=== PATIENT | male | born 1960 | race Caucasian/White ===

== ENCOUNTER → 2020-05-23 08:57 | Outpatient (CLI) | payer OTHER, SELFPAY ==
--- NOTE | ~2020-05-23 | MR_ITS ---
EXAMINATION: MR cervical spine wo con DATE: 05/23/2020 10:01 INDICATION: Neck pain. TECHNIQUE: Magnetic resonance imaging (MRI) of the cervical spine was performed without intravenous c ontrast. Sequences included sagittal T2-weighted FSE, sagittal STIR FSE, sagittal T1-weighted FSE, ax ial MERGE, and axial T2-weighted FSE. COMPARISON: None FINDINGS: There is mild kyphosis of upper cervical spine. Vertebral body heights are normal. There is mildly decreased disc height at C2-C3, severely decreased disc height at C3-C4, moderately decreased disc height at C4-C5, and severely decreased disc height at C5-C6 and C6-C7. The spinal cord signal intensity is normal. The following disc levels are specifically discussed: C2-C3: There is a left central protrusion. There is mild right and moderate left uncovertebral joint osteoarthritis. There is mild right and moderate left facet joint osteoarthritis. There is mild left neural foraminal stenosis. There is mild central canal stenosis. C3-C4: The disc is bulging. There is moderate right and severe left uncovertebral joint osteoarthriti s. There is moderate bilateral facet joint osteoarthritis. There is mild right and moderate left neur al foraminal stenosis. There is mild central canal stenosis with ventral indentation of spinal cord. C4-C5: The disc is bulging. There is moderate bilateral uncovertebral joint osteoarthritis. There is moderate bilateral facet joint osteoarthritis. There is mild bilateral neural foraminal stenosis. The re is mild central canal stenosis. C5-C6: The disc is bulging. There is severe bilateral uncovertebral joint osteoarthritis. There is mi ld right and moderate left facet joint osteoarthritis. There is mild bilateral neural foraminal steno sis. There is mild central canal stenosis. C6-C7: The disc is bulging. There is severe bilateral uncovertebral joint osteoarthritis. There is mi ld bilateral facet joint osteoarthritis. There is mild bilateral neural foraminal stenosis. There is mild central canal stenosis. C7-T1: There is a central protrusion. There is mild left uncovertebral joint osteoarthritis. There is moderate right and severe left facet joint osteoarthritis. There is mild bilateral neural foraminal stenosis. There is no central canal stenosis. IMPRESSION: 1. Severe cervical spondylosis. Reviewed, dictated and finalized at location A.
--- NOTE | ~2020-05-23 | MR_ITS ---
EXAMINATION: MR lumbar spine wo con DATE: 05/23/2020 10:12 INDICATION: Low back pain. TECHNIQUE: Magnetic resonance imaging (MRI) of the lumbar spine was performed without intravenous con trast. Sequences included sagittal T2-weighted FSE, sagittal T2-weighted FS FSE, sagittal T1-weighted FSE, and axial T2-weighted FSE. COMPARISON: Lumbar spine MRI 02/10/2016 FINDINGS: There is 11 degrees levoscoliosis of lumbar spine. There is 3 mm retrolisthesis of L3 on L4 and L4 on L5. There are Schmorl's nodes at all levels. There is mildly decreased disc height at L1-L 2 and L2-L3, moderately decreased disc height at L3-L4, severely decreased disc height at L4-L5, and moderately decreased disc height at L5-S1. The distal spinal cord signal intensity is normal. The con us medullaris is at T12-L1. The following disc levels are specifically discussed: L1-L2: The disc does not extend beyond the endplate margin. There is mild right facet joint osteoarth ritis. There is no neural foraminal stenosis. There is no central canal stenosis. L2-L3: The disc is mildly bulging. There is mild right facet joint osteoarthritis. There is no neural foraminal stenosis. There is mild central canal stenosis. L3-L4: The disc is bulging and has an annular fissure. There is mild bilateral facet joint osteoarthr itis. There is moderate right and mild left neural foraminal stenosis. There is mild central canal st enosis. L4-L5: The disc is bulging with superimposed left central extrusion. There is severe bilateral facet joint osteoarthritis. There is moderate bilateral neural foraminal stenosis. There is mild central ca nal stenosis. L5-S1: The disc is bulging and has an annular fissure. There is severe bilateral facet joint osteoart hritis. There is mild right and severe left neural foraminal stenosis. There is mild central canal st enosis. IMPRESSION: 1. Severe lumbar spondylosis, stable from 02/10/2016. Reviewed, dictated and finalized at location A.
== END ==
PROVIDERS: PCP Internal Medicine; Visit Provider Internal Medicine
DX: M47.896 Other spondylosis, lumbar region (principal); M47.892 Other spondylosis, cervical region
CPT/HCPCS: 72141; 72148

== ENCOUNTER → 2021-06-28 14:00 | Outpatient (CLI) | payer OTHER, SELFPAY ==
--- NOTE | ~2021-06-28 | US_ITS ---
EXAMINATION: US carotid duplex BI DATE: 06/28/2021 14:36 INDICATION: Coronary artery stenosis TECHNIQUE: Grayscale, color Doppler, and pulsed Doppler images of the cervical carotid arteries were obtained. The degree of vessel stenosis is placed in one of the following categories: normal, <50%, 5 0-69%, >=70% but less than near-occlusion, near-occlusion, or total occlusion. Note that percent sten osis relative to normal distal artery lumen diameter is indirectly measured from velocity measurement s as described by Dakota, et al. Radiology 2003; 229:340-346. COMPARISON: None. FINDINGS: RIGHT: The right common carotid artery (CCA) peak systolic velocity (PSV) is 87 cm/s. The right internal car otid artery (ICA) PSV is 112 cm/s. The right ICA end-diastolic velocity (EDV) is 35 cm/s. The right I CA/CCA PSV ratio is 1.3. Grayscale and color Doppler images yield an estimate of <50% diameter reduct ion from plaque in the ICA. The external carotid artery (ECA) PSV is 81 cm/s. There is antegrade flow in the right vertebral artery. LEFT: The left CCA PSV is 74 cm/s. The left ICA PSV is 53 cm/s. The left ICA EDV is 18 cm/s. The left ICA/C CA PSV ratio is 0.7. Grayscale and color Doppler images yield an estimate of <50% diameter reduction from plaque in the ICA. The ECA PSV is 67 cm/s. There is antegrade flow in the left vertebral artery. IMPRESSION: 1. <50% stenosis in the right internal carotid artery. 2. <50% stenosis in the left internal carotid artery. Reviewed, dictated and finalized at location B.
== END ==
PROVIDERS: PCP Internal Medicine; Visit Provider Internal Medicine
DX: I65.23 Occlusion and stenosis of bilateral carotid arteries (principal)
CPT/HCPCS: 93880

== ENCOUNTER 2023-04-02 13:09 | Outpatient (CLI) | payer MEDICARE, SELFPAY ==
--- NOTE | ~2023-04-02 | US_ITS ---
EXAMINATION: US retroperitoneal comp DATE: 04/02/2023 13:44 INDICATION: Stage IIIa chronic kidney disease TECHNIQUE: Multiple ultrasound grayscale images of the kidneys were obtained. COMPARISON: 07/13/2016 FINDINGS: The right kidney measures 12.0 x 5.8 x 4.9 cm. The left kidney measures 11.3 x 6.3 x 4.7 cm. There is normal echogenicity of both kidneys. There are a few anechoic left renal cysts the largest measuring 3.8 cm. There is no hydronephrosis in either kidney. No stones identified. The bladder is normal. IMPRESSION: 1. A few left renal cysts measuring up to 3.8 cm. Otherwise normal kidneys without hydronephrosis. Reviewed, dictated and finalized at location A. IMPRESSION: 1. A few left renal cysts measuring up to 3.8 cm. Otherwise normal kidneys wit hout hydronephrosis.
== END 2023-04-02 13:10 | disposition home or self-care (01) ==
LOC: ANHIMG 13:13
PROVIDERS: PCP Internal Medicine; Visit Provider Specialist
DX: N18.31 Chronic kidney disease, stage 3a (principal); N28.1 Cyst of kidney, acquired
CPT/HCPCS: 76770

== ENCOUNTER 2023-04-26 15:51 | Emergency (ER) | payer MEDICARE, SELFPAY ==
--- NOTE | ~2023-04-26 | US_ITS ---
EXAMINATION: US venous doppler [facility] DATE: 04/26/2023 19:27 INDICATION: Left lower limb pain and swelling TECHNIQUE: Arceo scale images without and with compression and Doppler images of the left lower extrem ity veins were obtained. COMPARISON: None FINDINGS: The left common femoral vein, profunda femoral vein, femoral vein, popliteal vein, peroneal trunk, posterior tibial veins, and greater saphenous vein are patent. IMPRESSION: 1. Patent left lower extremity veins. No evidence of deep venous thrombosis. Reviewed, dictated and finalized at location F.
[2023-04-26 15:53] VITALS: BP 190/100; PULSE 57; RESP 18; TEMP 36.2; O2SAT 98
[2023-04-26 16:17] LABS: Basophils Percent Auto 0.6 % (0.2-1.2); Eosinophils Absolute Auto 0.3 K/mm3 (0-0.3); Eosinophils Percent Auto 6.5 % (0-4.4); Hematocrit 38.2 % (42.0-52.0); Hemoglobin 12.6 g/dL (14.0-18.0); Immature Granulocyte Absolute 0.01 K/mm3 (0.00-0.031); Immature Granulocyte Percent A 0.2 % (0-0.5); Lymphocytes Absolute Auto 0.97 K/mm3 (0.9-3.2); Lymphocytes Percent Auto 18.4 % (18.3-44.2); Mean Corpuscular Hemoglobin 32.6 pg (26-34); Mean Platelet Volume 11.2 fl (7.4-10.4); Monocytes Absolute Auto 0.5 K/mm3 (0.1-0.6); Monocytes Percent Auto 9.3 % (2.6-8.5); Neutrophils Absolute Auto 3.4 K/mm3 (1.3-6.7); Platelet Count Result 148 k/mm3 (150-375); Red Blood Count 3.86 M/mm3 (4.6-6.20); Red Cell Distribution Width 13.4 % (11.5-14.5); White Blood Count 5.3 K/mm3 (4.5-10.0)
[2023-04-26 16:28] LABS: Prothrombin Time 13.6 Seconds (11.1-14.7)
[2023-04-26 16:29] LABS: Partial Thromboplastin Time 24.4 SECONDS (22.3-36.8)
[2023-04-26 16:34] LABS: Alanine Aminotransferase 21 U/L (6-50); Albumin Level 4.2 g/dL (3.5-5.1); Alkaline Phosphatase 70 U/L (38-126); Anion Gap 10 mmol/L (8-16); Aspartate Amino Transferase 27 U/L (17-59); Bilirubin,Total 0.5 mg/dL (0.2-1.3); Blood Urea Nitrogen 37 mg/dL (9-20); Calcium 9.2 mg/dL (8.4-10.2); Carbon Dioxide 24 mmol/L (22-30); Chloride 103 mmol/L (98-107); Estimated CRCL calculation 38 ml/min; Estimated Glomerular Filt Rate 24; Glucose 88 mg/dL (65-110); Sodium 137 mmol/L (137-145)
[2023-04-26 17:41] VITALS: BP 166/91; PULSE 55; RESP 18; O2SAT 98
--- NOTE | 2023-04-26 18:16 | ED.LOWEXIN ---
HPI - Extremity Injury (Lower) General Chief Complaint: Extremity Injury, Lower <Sarah Monge APRN - Last Filed: 04/26/23 23:02> Stated Complaint: Left leg red <Sarah Monge APRN - Last Filed: 04/26/23 23:02> Time Seen by Provider: 04/26/23 17:44 <Sarah Monge APRN - Last Filed: 04/26/23 23:02> Source: patient <Sarah Monge APRN - Last Filed: 04/26/23 23:02> Mode of arrival: ambulatory <Sarah Monge APRN - Last Filed: 04/26/23 23:02> Limitations: no limitations <Sarah Monge APRN - Last Filed: 04/26/23 23:02> History of Present Illness HPI Narrative: Patient is a pleasant 63-year-old male with a past medical history of obesity, sleep apnea, gout, hypertension, Stage 3 CKD, who presents emergency department today ambulatory this dedicated for concerns of left lower leg redness and swelling and pain over the calf. Patient states that it has been going on for either a few weeks or month and a half he states. He states that he finished his last dose of cephalexin that he was on for 1 week today for infection of the skin of the leg. He states that the redness has actually gotten better however he still had some pain and he was going to have an outpatient scan to rule out any type of blood clot but they advised him to come here. Patient states that the pain has gotten better as well as the redness today but is still there so he wanted to get it checked out. Patient states that they did increase his water pill recently and thought that maybe that was making it worse. Patient denies any chest pain, worsening shortness of breath ( patient states he is always short of breath and his baseline), fever, chills numbness or tingling left lower extremity, fall, dizziness, nausea, vomiting, or any other symptoms. denies hx of PE or DVT. denies tobacco use. denies recent travel or long periods of immobilization. <ART Mckeon Last Filed: 04/26/23 23:02> Related Data Home Medications: Home Medications Medication Instructions Recorded Confirmed allopurinol 300 mg tablet 300 mg PO DAILY 08/28/19 08/28/19 colchicine (gout) 0.6 mg capsule 0.6 mg PO DAILY GOUT 08/28/19 08/28/19 (Mitigare) enalapril maleate 20 mg tablet 20 mg PO BID 08/28/19 08/28/19 furosemide 40 mg tablet 40 mg PO DAILY 08/28/19 08/28/19 gemfibrozil 600 mg tablet 600 mg PO BID 08/28/19 08/28/19 hydralazine 25 mg tablet 25 mg PO BID 08/28/19 08/28/19 indapamide 2.5 mg tablet 1.25 mg PO DAILY 08/28/19 08/28/19 melatonin 5 mg tablet 10 mg PO HS PRN Insomnia 08/28/19 08/28/19 metoprolol succinate 200 mg 200 mg PO DAILY 08/28/19 08/28/19 tablet,extended release 24 hr oxymetazoline 0.05 % nasal spray 2 spray intranasal Q12H PRN 08/28/19 08/28/19 (Afrin (oxymetazoline)) Congestion risankizumab-rzaa 150 mg/1.66 mL 150 mg subcut DIRECTED 08/28/19 08/28/19 (75 mg/0.83mL x 2) subcut syringe kit (Skyrizi) <Sarah Monge APRN - Last Filed: 04/26/23 23:02> Allergies/Adverse Reactions: Allergies Allergy/AdvReac Type Severity Reaction Status Date / Time No Known Allergies Allergy Unverified 08/28/19 19:48 <Sarah Monge APRN - Last Filed: 04/26/23 23:02> Review of Systems Review of Systems: CONSTITUTIONAL: Denies fever, chills, or sweats. EYES: Denies visual changes, redness, or discharge. ENT: Denies rhinorrhea, congestion, sore throat, or otalgia. CARDIOVASCULAR: Denies chest pain, palpitations, or edema. RESPIRATORY: Denies cough or worsening dyspnea from his baseline. GASTROINTESTINAL: Denies abdominal pain, nausea, vomiting, or diarrhea. GENITOURINARY: Denies dysuria or hematuria. SKIN: Denies rash or itching. +redness/warmth to left lower leg below knee to ankle. MUSCULOSKELETAL: Denies back pain, joint pain, swelling and pain to left lower calf. NEUROLOGIC: Denies headache, numbness, or weakness. PSYCHIATRIC: Denies anxiety or depression. <Sarah Monge, WOMEN SPECIALIST - Last Filed:
[2023-04-26 19:04] VITALS: BP 147/83; PULSE 55; RESP 20; O2SAT 98
[2023-04-26 19:25] VITALS: BP 152/86; PULSE 55; RESP 16; TEMP 36.3; O2SAT 99
[2023-04-26 20:25] LABS: Uric Acid 5.9 mg/dL (3.5-8.5)
[2023-04-26 20:59] VITALS: BP 167/84; PULSE 52; RESP 16; TEMP 36.7; O2SAT 99
== END 2023-04-26 21:00 | disposition home or self-care (01) ==
PROVIDERS: Emergency Medicine; Emergency Provider Nurse Practitioner; PCP Internal Medicine
DX: L03.116 Cellulitis of left lower limb (principal); I12.9 Hypertensive chronic kidney disease with stage 1 through stage 4 chronic kidney disease, or unspecified chronic kidney disease; M79.662 Pain in left lower leg; N18.30 Chronic kidney disease, stage 3 unspecified; G47.30 Sleep apnea, unspecified; M10.9 Gout, unspecified; E66.9 Obesity, unspecified; Z68.43 Body mass index [BMI] 50.0-59.9, adult; Z96.652 Presence of left artificial knee joint; Z87.891 Personal history of nicotine dependence
CPT/HCPCS: 36415; 80053; 84550; 85025; 85610; 85730; 93971; 99284

== ENCOUNTER 2024-02-11 13:20 | Outpatient (CLI) | payer MEDICARE, SELFPAY ==
[2024-02-11 14:07] LABS: Prothrombin Time 13.2 Seconds (11.1-14.7)
== END 2024-02-11 13:21 | disposition home or self-care (01) ==
LOC: ANHSURGERY 13:26
PROVIDERS: Anesthesiology; PCP Internal Medicine; Visit Provider Orthopaedic Surgery
DX: Z01.818 Encounter for other preprocedural examination (principal); N28.9 Disorder of kidney and ureter, unspecified
CPT/HCPCS: 36415; 85610; 85730

== ENCOUNTER 2024-02-13 02:46 | Day surgery (SDC) | payer MEDICARE, SELFPAY ==
[2024-02-06 14:14] VITALS: BMI 50.7
--- NOTE | 2024-02-06 14:39 | PC.NURSE ---
Report to the Outpatient Waiting Room, entrance under the green pavilion located off [facility], at time __1130___ on date __02/13/24 . Planned Procedure Time: ___1:30 PM . Time changes happen often and if your time is changed the preop area will call you the afternoon before. - You and your visitor will be asked to self-screen and do not enter if you have any COVID symptoms. - A mask is optional within the hospital at this time. Patients may have clear liquids (water, carbonated beverages, clear teas, apple juice) until 3 hours prior to surgery (1030 AM) with a maximum of 20 ounces. - No food from midnight until time of surgery - Infants may have breast milk until 4 hours before surgery, infant formula 6 hours prior to surgery. - Children will be allowed to drink immediately following surgery. If applicable, please bring a bottle or sippy cup to assist with drinking. Juice, water, soda, and popsicles are readily available. For infants on formula, please bring formula the day of surgery. Pacifiers are allowed. Take the following medications with a SIP of water the morning of surgery: _DILTIAZEM, HYDRALAZINE, ISOSORBIDE, METOPROLOL, & INHALER IF NEEDED_ DO NOT STOP ANY OF YOUR OTHER PRESCRIPTION MEDICATIONS PRIOR TO SURGERY ?EXCEPT THE FOLLOWING Medications to discontinue per physician __PT STATES TO CONTINUE ASPIRIN PER DR. ZHANG___ Date to take last dose Please no make-up, nail swedish, hairspray, perfume, deodorant, or body powder the day of surgery. No jewelry (including any body piercings) or valuables the day of surgery, leave them at home. Please take a shower or bath the night before, or the morning of, surgery with an antibacterial soap. Wear comfortable, loose fitting clothing. Children are encouraged to wear pajamas. - Jewelry must be removed prior to entering the operating room. Rings and piercings that are not removed may be cut off. - The hospital will not accept responsibility for valuables. - Please leave all valuables, including medications, at home the day of surgery. If you are going home after surgery, a licensed paratransit driver must drive you home. - NO public transportation without another adult if you receive anesthesia. - We recommend that an adult stay with you for 24 hours following discharge. - We also recommend that you do not drive, make important decision, drink alcoholic beverages, or take any drugs that were not prescribed by your health care provider for at least 24 hours after your discharge time. For Pediatric surgeries, we recommend two adults accompany the child home. Follow any additional instructions given to you from your surgeon. If you or anyone in your household have experienced Covid symptoms in the past week, please notify your surgeon or the nurse liaison at the phone number below for possible testing. Telephone instructions given to ____PT and asked if any additional questions and then verbalized understanding. Patient advised to call surgeon office or pre surgery nurse liaison [phone] if any additional questions.
--- NOTE | 2024-02-12 16:31 | PM.IMHP ---
H&P: HPI History of Present Illness Date/Time: 02/12/24 16:31 Chief Complaint: Left carpal tunnel syndrome Narrative: Patient is a 63-year-old gentleman with 2 year history of constant numbness in the long finger of his left hand for the last 2 years and intermittent dense numbness in his right hand twice a week. This bothers him a great deal and he presents for left carpal tunnel syndrome. He did not improve with nocturnal splinting. His EMG showed no signs of C7 radiculopathy no evidence of left ulnar or radial neuropathy and nerve conduction velocity testing showed moderate left carpal tunnel syndrome. Patient has history of severe obesity with BMI 50. Is a former smoker. 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 Morbid obesity Psoriasis Sleep apnea Surgical History Surgical History History of total left knee replacement Family History Family History Father Prostate carcinoma Dementia Social History Social History Smoking packs per day: 1 Smoking cigarettes per day: 20.0 Years smoked: 40 Smoking pack-years: 40.00 Smoking status: Former smoker Tobacco type: cigarettes Second hand tobacco smoke exposure: Yes (WHEN WORKING) Smoking end date: 09/23/16 Alcohol intake: current Drinks per week: 1 Alcohol use details: occasionally Substance use: never Substance use type: does not use Do You Feel Safe in your Home?: Yes Lack of Transportation: No Lack of Food: Never True Current Housing: I Have Housing Concerned About Future Housing: No Difficulty Paying Gas/Electric Bills: No Difficulty Paying for Meds: No Currently Unemployed: No Education: High School Diploma/GED Difficulty w/ Childcare or Family Care: No Living arrangements: alone Occupation/Education: retired Gender identity (if verbalized by the patient): Male Spiritual care concerns: No Agree to blood products: Yes Meds Home Medications and Allergies Home Medications Medication Instructions Recorded Confirmed Type allopurinol 300 mg tablet 300 mg PO DAILY 08/28/19 02/06/24 History furosemide 40 mg tablet 40 mg PO DAILY 08/28/19 02/06/24 History gemfibrozil 600 mg tablet 600 mg PO BID 08/28/19 02/06/24 History melatonin 5 mg tablet 5 mg PO HS PRN Insomnia 08/28/19 02/06/24 History albuterol sulfate 90 mcg/actuation 1 puff inhalation Q4H PRN Wheezing 12/30/23 02/06/24 History aerosol inhaler aspirin 81 mg chewable tablet 81 mg PO DAILY 12/30/23 02/06/24 History calcitriol 0.25 mcg capsule 0.25 mcg PO DAILY 12/30/23 02/06/24 History diltiazem HCl 120 mg 120 mg PO DAILY 12/30/23 02/06/24 History capsule,extended release 12 hr doxazosin 4 mg tablet 4 mg PO QHS 12/30/23 02/06/24 History hydralazine 50 mg tablet 50 mg PO BID 12/30/23 02/06/24 History isosorbide dinitrate 30 mg tablet 30 mg PO ONCE 12/30/23 02/06/24 History losartan 50 mg tablet 50 mg PO DAILY 12/30/23 02/06/24 History metoprolol succinate 100 mg 100 mg PO DAILY 12/30/23 02/06/24 History tablet,extended release 24 hr risankizumab-rzaa 150 mg/mL 150 mg subcut ONCE 12/30/23 02/06/24 History subcutaneous pen injector (Wolfgang) sevelamer carbonate 800 mg tablet 800 mg PO TID 12/30/23 02/06/24 History (Renvela) Allergies Allergy/AdvReac Type Severity Reaction Status Date / Time amlodipine Allergy Mild Itching Unverified 02/06/24 14:07 indapamide Allergy Unknown Itching Verified 02/06/24 14:07 Exam Narrative: Examination he is gentleman in no acute distress. Alert oriented. Is elevated 2 point discrimination of 7 mm both have long finger 6 mm both have is a of s
[2024-02-13] VITALS (8 sets, daily range): BP systolic 120–145; BP diastolic 68–86; PULSE 53–61; RESP 12–20; TEMP 36.3–36.6; O2SAT 97–100; BMI 50.3
[2024-02-13] MEDS: LACTATED RINGERS 1,000 ML 30 ML IV CONT (12:40)
[2024-02-13] MEDS: ACETAMINOPHEN 500 MG TABLET 1000 MG PO (13:03)
--- NOTE | 2024-02-13 13:42 | WPDANESEPPF ---
Anes - Initial Pre Proc Eval Procedure: Operation Date: 02/13/24 14:00 Proposed Procedures p Left Carpal Tunnel Release - Robert Plaza MD Date/Time: 02/13/24 13:42 Surgeon: Robert Plaza MD Pre Op Diagnosis: left carpal tunnel syndrome Patient Data Age: 63 Gender: M Height: 1.79 m Weight: 161.2 kg Last Vital Signs Temp 97.8 F 02/13/24 12:15 Pulse 53 L 02/13/24 12:15 Resp 18 02/13/24 12:15 BP 145/84 H 02/13/24 12:15 Pulse Ox 98 02/13/24 12:15 O2 Del Method Room Air 02/13/24 12:15 Allergies Allergy/AdvReac Type Severity Reaction Status Date / Time amlodipine Allergy Mild Itching Verified 02/13/24 12:41 indapamide Allergy Unknown Itching Verified 02/13/24 12:41 Home Medications Medication Instructions Recorded Confirmed Type allopurinol 300 mg tablet 300 mg PO DAILY 08/28/19 02/06/24 History furosemide 40 mg tablet 40 mg PO DAILY 08/28/19 02/06/24 History gemfibrozil 600 mg tablet 600 mg PO BID 08/28/19 02/06/24 History melatonin 5 mg tablet 5 mg PO HS PRN Insomnia 08/28/19 02/06/24 History albuterol sulfate 90 mcg/actuation 1 puff inhalation Q4H PRN Wheezing 12/30/23 02/06/24 History aerosol inhaler aspirin 81 mg chewable tablet 81 mg PO DAILY 12/30/23 02/06/24 History calcitriol 0.25 mcg capsule 0.25 mcg PO DAILY 12/30/23 02/06/24 History diltiazem HCl 120 mg 120 mg PO DAILY 12/30/23 02/13/24 History capsule,extended release 12 hr doxazosin 4 mg tablet 4 mg PO QHS 12/30/23 02/06/24 History hydralazine 50 mg tablet 50 mg PO BID 12/30/23 02/13/24 History isosorbide dinitrate 30 mg tablet 30 mg PO ONCE 12/30/23 02/13/24 History losartan 50 mg tablet 50 mg PO DAILY 12/30/23 02/06/24 History metoprolol succinate 100 mg 100 mg PO DAILY 12/30/23 02/13/24 History tablet,extended release 24 hr risankizumab-rzaa 150 mg/mL 150 mg subcut ONCE 12/30/23 02/06/24 History subcutaneous pen injector (Skyrizi) sevelamer carbonate 800 mg tablet 800 mg PO TID 12/30/23 02/06/24 History (Renvela) Patient hx anesthesia problems: none Family hx anesthesia problems: none Results Review: All pre-operative results and documents have been reviewed as part of the pre-operative evaluation. 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 Morbid obesity Psoriasis Sleep apnea Surgical History Surgical History History of total left knee replacement Family History Family History Father Prostate carcinoma Dementia Social History Social History Smoking packs per day: 1 Smoking cigarettes per day: 20.0 Years smoked: 40 Smoking pack-years: 40.00 Smoking status: Former smoker Tobacco type: cigarettes Second hand tobacco smoke exposure: Yes (WHEN WORKING) Smoking end date: 09/23/16 Alcohol intake: current Drinks per week: 1 Alcohol use details: occasionally Substance use: never Substance use type: does not use Do You Feel Safe in your Home?: Yes Lack of Transportation: No Lack of Food: Never True Current Housing: I Have Housing Concerned About Future Housing: No Difficulty Paying Gas/Electric Bills: No Difficulty Paying for Meds: No Currently Unemployed: No Education: High School Diploma/GED Difficulty w/ Childcare or Family Care: No Living arrangements: alone Occupation/Education: retired Gender identity (if verbalized by the patient): Male Spiritual care concerns: No Agree to blood products: Yes Anes - Eval Final PreProcedure Day of Procedure 02/13/24 13:42 Patient weight: super morbidly obese Heart: regular rate and rhythm Lungs: clear to auscultation Airway: M
--- NOTE | 2024-02-13 13:56 | WPDHPUPDATE1 ---
History and Physical Update Update Date/Time: 02/13/24 13:56 History and Physical has been reviewed, including an updated exam of the patient. There are NO changes in the patient's condition. Risks, benefits, and alternatives have been discussed and questions answered. Patient agrees to proceed with procedure.
[2024-02-13] MEDS: ceFAZolin 3 GM/D5W 100 ML 100 ML IVPB (14:12)
[2024-02-13] MEDS: LIDO 1%/EPINEPHRINE/PF 1:200,000 30 ML VIAL 20 ML XX (14:27)
--- NOTE | 2024-02-13 14:41 | W.PM.PROC2 ---
Procedure Note - Detailed Date of Procedure 02/13/24 Pre-op Diagnosis left carpal tunnel syndrome Post-op Diagnosis Same Procedure Performed Left carpal tunnel release Surgeon Robert Plaza MD Anesthesia General Description of Procedure Patient was brought to the operating room and general anesthesia was administered LMA. SCDs were on both legs and running. He received 3 g of Ancef. The left arm were was prepped draped usual fashion. Limb was exsanguinated tourniquet elevated to a 50 mmHg. Weight 3 cm longitudinal incision was made the base of the palm in line with the radial border the 4th ray. Dissection was carried down through the superficial palmar fascia the transverse carpal ligament which was longitudinally incised. Complete release was achieved distally. Proximally a subcutaneous fat was elevated off the distal volar form fascia and a [place] elevator passed underneath the fascia from the underlying nerve. The fascia was then split for a distance of 3 cm proximal to the flexor crease of the wrist completed the decompression. Tourniquet was released hemostasis was achieved wound irrigated closed with 4-0 nylon suture and a soft bulky dressing applied. No known complications. [facility] Billing Surgery - Charge Forward: Surgery Billing (Left carpal tunnel release)
== END 2024-02-13 16:55 | disposition home or self-care (01) ==
PROVIDERS: PCP Internal Medicine; Visit Provider Orthopaedic Surgery
PROC: (CPT 64721; principal; 2024-02-13 14:00)
DX: G56.02 Carpal tunnel syndrome, left upper limb (principal); Z79.51 Long term (current) use of inhaled steroids; Z79.620 Long term (current) use of immunosuppressive biologic; L40.9 Psoriasis, unspecified; G47.30 Sleep apnea, unspecified; I10 Essential (primary) hypertension; M10.9 Gout, unspecified; E66.01 Morbid (severe) obesity due to excess calories; Z68.43 Body mass index [BMI] 50.0-59.9, adult; Z95.820 Peripheral vascular angioplasty status with implants and grafts; Z87.891 Personal history of nicotine dependence
CPT/HCPCS: 64721; A9270; J0690; J1885; J2250; J2405; J2704; J3010; J7120

== ENCOUNTER 2024-05-20 13:27 | Outpatient (CLI) | payer MEDICARE, SELFPAY ==
--- NOTE | 2024-05-21 11:31 | WPDSIXMINUTE ---
Six Minute Walk Procedure Procedure Performed Pulmonary Stress Test (6 min walk) Six Minute Walk Six Minute Walk: This is a 6 minute walk test. The test was performed and interpreted in accordance with the 2014 ERS/ATS task force guidelines. Findings: The patient's resting room air oxygen saturation measured by pulse oximetry was 97% and heart rate was 63 bpm. Patient ambulated for 427 meters and oxygen saturation remained 93 to 96%. Heart rate at the end of the study was 84 bpm. The patient did not qualify for supplemental oxygen at rest or with ambulation. There are no prior studies for comparison.
--- NOTE | 2024-05-21 11:32 | WPDPFTINT ---
PFT Procedure Performed PFT Procedure Performed Spirometry with Pre/Post Bronchodilator Plethysmography (Lung Vol) Diffusing Cap (DLCO) Flow Vol Loop PFT Interpretation This is a pulmonary function test with pre and post-bronchodilator spirometry, plethysmography and diffusing capacity. The test was performed and results interpreted in accordance with the 2019 and 2005 ATS/ERS Task Force guidelines respectively using the Global Lung Function Initiative-2012 reference equations. Patient demonstrated good effort and cooperation. Reproducibility criteria were met. The quality of the pre bronchodilator spirometry maneuver was Grade A and post bronchodilator spirometry maneuver was Grade A. Findings: Spirometry: The contour the inspiratory and expiratory flow tracing are normal. The pre bronchodilator FVC is 3.59 L, 81% predicted. The pre bronchodilator FEV1 is 2.47 L, 73% predicted. The pre bronchodilator FEV1: FVC ratio 69%. The post bronchodilator FVC is 3.64 L, representing 1% increase. The post bronchodilator FEV1 is 2.57 L, representing a 4% increase. The post bronchodilator FEV1: FVC ratio 71%. Plethysmography: The total lung capacity is 5.75 L, 82% predicted. The functional residual capacity is 2.33 L, 63% predicted. The residual volume is 2.10 L, 89% predicted. Diffusing capacity: The diffusing capacity unadjusted for hemoglobin and carboxyhemoglobin is 21.1, 78% predicted. The diffusing capacity adjusted for alveolar volume is 3.82, 94% predicted. Impression: The spirometry is normal without evidence of an obstructive abnormality. The FVC is normal with a mildly decreased FEV1 and a normal FEV1: FVC ratio. This is an abnormal but nonspecific pattern. There is no significant improvement after inhaling a single dose of albuterol. The lung volumes are normal. The diffusing capacity is normal. There are no prior studies for comparison
== END 2024-05-20 13:28 | disposition home or self-care (01) ==
LOC: ANHPFT 13:28
PROVIDERS: PCP Internal Medicine; Visit Provider Physician Assistant
DX: R06.09 Other forms of dyspnea (principal)
CPT/HCPCS: 94060; 94618; 94726; 94729